=== PATIENT | male | born 1965 | race African-American/Black ===

== ENCOUNTER 2023-11-15 22:51 | Inpatient (IN) | payer OTHER, SELFPAY ==
[2023-11-15 23:56] VITALS: BMI 27.4
[2023-11-16] MEDS ORDERED: Acetaminophen 325 MG TAB PO PRN (00:38)
[2023-11-16] MEDS ORDERED: Senokot S 8.6-50 MG TAB PO PRN (00:38)
[2023-11-16] MEDS ORDERED: Ondansetron ODT 4 MG TAB PO PRN (00:38)
[2023-11-16] MEDS ORDERED: Morphine 2 MG/ML VIAL SLOW IVP PRN (00:43)
[2023-11-16] MEDS: Potassium Chloride 20 MEQ in Premix 1 BAG IVPB SCH (02:20)
[2023-11-16] MEDS: Lactated Ringer's 1,000 ML IV SCH (02:20)
[2023-11-16] MEDS: Pantoprazole 40 MG VIAL IVP SCH ×2 (02:21→09:03)
[2023-11-16 04:43] LABS: #Basophils Less than 0.03 10x3/uL (0.0-0.2); %Lymphocytes 29.6 % (21.0-51.0); %Monocytes 19.6 % (0.0-10.0); %Neutrophils 48.6 % (42.0-75.0); Hematocrit 41.4 % (42.0-52.0); Hemoglobin 13.5 g/dL (14.0-18.0); Mean Corpuscular HGB CONC 32.6 g/dL (32.0-36.0); Mean Corpuscular Hemoglobin 28.4 pg (27.0-31.0); Mean Corpuscular Volume 87.2 fL (78.0-98.0); Mean Platelet Volume 9.1 fL (7.4-10.4); Platelet Count 253 10x3/uL (130-400); RBC Distribution Width 15.3 % (11.5-14.5); Red Blood Cell (RBC) Count 4.75 mill/uL (4.70-6.10)
[2023-11-16 04:54] LABS: Magnesium 2.6 mg/dL (1.6-2.6)
[2023-11-16 04:55] LABS: Anion Gap 18 mmol/L (10-20); BUN (Urea Nitrogen) 18 mg/dL (8.4-25.7); Calc. Creatinine Clearance 76 mL/min (70-130); Calcium 9.7 mg/dL (7.8-10.44); Carbon Dioxide 27 mmol/L (22-29); Chloride 103 mmol/L (98-107); Estimated GFR 66; Glucose 106 mg/dL (70-105); Potassium 3.6 mmol/L (3.5-5.1); Sodium 144 mmol/L (136-145)
[2023-11-16] MEDS ORDERED: Acetaminophen 650 MG Suppository PR PRN (12:11)
[2023-11-16] MEDS ORDERED: Ondansetron PF 4 MG/2 ML Vial IVP PRN (12:12)
[2023-11-16] MEDS: Morphine 4 MG/ML VIAL SLOW IVP PRN (20:33)
[2023-11-17 05:26] LABS: Hematocrit 42.7 % (42.0-52.0); Hemoglobin 13.5 g/dL (14.0-18.0); Mean Corpuscular HGB CONC 31.6 g/dL (32.0-36.0); Mean Corpuscular Hemoglobin 27.9 pg (27.0-31.0); Mean Corpuscular Volume 88.2 fL (78.0-98.0); Mean Platelet Volume 8.6 fL (7.4-10.4); Platelet Count 247 10x3/uL (130-400); RBC Distribution Width 15.6 % (11.5-14.5); Red Blood Cell (RBC) Count 4.84 mill/uL (4.70-6.10)
[2023-11-17 05:45] LABS: Anion Gap 10 mmol/L (10-20); BUN (Urea Nitrogen) 19 mg/dL (8.4-25.7); Calc. Creatinine Clearance 76 mL/min (70-130); Calcium 9.6 mg/dL (7.8-10.44); Carbon Dioxide 29 mmol/L (22-29); Chloride 107 mmol/L (98-107); Estimated GFR 65; Glucose 102 mg/dL (70-105); Potassium 4.3 mmol/L (3.5-5.1); Sodium 142 mmol/L (136-145)
[2023-11-17] MEDS: Benzocaine/Menthol 1 LOZ LOZ PO PRN (08:33)
[2023-11-17] MEDS: Enoxaparin 40 MG (0.4 mL) SYRINGE SC SCH (10:35)
[2023-11-18 04:53] LABS: Hemoglobin 12.7 g/dL (14.0-18.0); Mean Corpuscular HGB CONC 31.8 g/dL (32.0-36.0); Mean Corpuscular Volume 88.3 fL (78.0-98.0); Mean Platelet Volume 8.7 fL (7.4-10.4); Platelet Count 244 10x3/uL (130-400); RBC Distribution Width 15.2 % (11.5-14.5); Red Blood Cell (RBC) Count 4.53 mill/uL (4.70-6.10)
[2023-11-18 05:13] LABS: Anion Gap 10 mmol/L (10-20); BUN (Urea Nitrogen) 16 mg/dL (8.4-25.7); Calc. Creatinine Clearance 77 mL/min (70-130); Calcium 9.2 mg/dL (7.8-10.44); Carbon Dioxide 24 mmol/L (22-29); Chloride 109 mmol/L (98-107); Estimated GFR 67; Glucose 93 mg/dL (70-105); Magnesium 2.3 mg/dL (1.6-2.6); Potassium 4.3 mmol/L (3.5-5.1); Sodium 139 mmol/L (136-145)
[2023-11-18] MEDS ORDERED: MD-Gastroview 120 ML BOT ONE (08:38)
[2023-11-18] MEDS: Enoxaparin 40 MG (0.4 mL) SYRINGE SC SCH (13:24)
[2023-11-19 06:13] LABS: Anion Gap 13 mmol/L (10-20); BUN (Urea Nitrogen) 16 mg/dL (8.4-25.7); Calc. Creatinine Clearance 83 mL/min (70-130); Calcium 9.2 mg/dL (7.8-10.44); Carbon Dioxide 24 mmol/L (22-29); Chloride 112 mmol/L (98-107); Estimated GFR 73; Glucose 84 mg/dL (70-105); Potassium 3.8 mmol/L (3.5-5.1); Sodium 145 mmol/L (136-145)
[2023-11-20 17:23] LABS: Hematocrit 37.8 % (42.0-52.0); Hemoglobin 12.5 g/dL (14.0-18.0); Mean Corpuscular HGB CONC 33.1 g/dL (32.0-36.0); Mean Corpuscular Hemoglobin 28.2 pg (27.0-31.0); Mean Corpuscular Volume 85.3 fL (78.0-98.0); Mean Platelet Volume 8.7 fL (7.4-10.4); Platelet Count 237 10x3/uL (130-400); RBC Distribution Width 14.8 % (11.5-14.5); Red Blood Cell (RBC) Count 4.43 mill/uL (4.70-6.10)
[2023-11-20 17:41] LABS: Anion Gap 18 mmol/L (10-20); BUN (Urea Nitrogen) 16 mg/dL (8.4-25.7); Calc. Creatinine Clearance 53 mL/min (70-130); Carbon Dioxide 20 mmol/L (22-29); Chloride 107 mmol/L (98-107); Estimated GFR 43; Glucose 102 mg/dL (70-105); Potassium 3.6 mmol/L (3.5-5.1); Sodium 141 mmol/L (136-145)
[2023-11-20 17:55] LABS: Band 30 % (5-11); Large Platelets 2.8 % (0-5); Lymphocytes 9 % (21-51); Monocytes 7 % (0-10); Neutrophil 55 % (42-75); Platelet Adequacy Comment Platelets Normal
[2023-11-20] MEDS: Lactated Ringer's 1,000 ML IV SCH (20:33)
[2023-11-21 05:50] LABS: Anion Gap 13 mmol/L (10-20); BUN (Urea Nitrogen) 21 mg/dL (8.4-25.7); Calc. Creatinine Clearance 57 mL/min (70-130); Calcium 8.5 mg/dL (7.8-10.44); Carbon Dioxide 22 mmol/L (22-29); Chloride 108 mmol/L (98-107); Estimated GFR 46; Glucose 99 mg/dL (70-105); Magnesium 1.3 mg/dL (1.6-2.6); Potassium 3.7 mmol/L (3.5-5.1); Sodium 139 mmol/L (136-145)
[2023-11-21 06:40] LABS: Mean Corpuscular HGB CONC 33.3 g/dL (32.0-36.0); Mean Corpuscular Hemoglobin 28.2 pg (27.0-31.0); Mean Corpuscular Volume 84.6 fL (78.0-98.0); Mean Platelet Volume 9.1 fL (7.4-10.4); Platelet Count 212 10x3/uL (130-400); RBC Distribution Width 15.2 % (11.5-14.5)
[2023-11-21 07:13] LABS: Anisocytosis SLIGHT = 6-15 cells HPF (0-5); Band 27 % (5-11); Burr Cells SLIGHT = 2-5 cells HPF (0-1); Eosinophils 1 % (0-10); Lymphocytes 2 % (21-51); Macrocytosis SLIGHT = 6-15 cells HPF (0-5); Monocytes 4 % (0-10); Neutrophil 66 % (42-75); Platelet Adequacy Comment Platelets Normal; Smudge Cells 13.9 %
[2023-11-21 09:22] VITALS: BP 112/69; TEMP 99.9
[2023-11-21] MEDS: Pantoprazole DR 40 MG TAB PO SCH (09:39)
== END 2023-11-21 16:36 | disposition left against medical advice (07) | DRG 389 ==
LOC: MSONC 23:40 → OBSVTOIN 11-16 00:38
PROVIDERS: ADMIT Student in an Organized Health Care Education/Training Program; ATTEND Internal Medicine
PROC: 0D9670Z Drainage of Stomach with Drainage Device, Via Natural or Artificial Opening (ICD-10-PCS; principal; 2023-11-16)
PROC: 3E0G76Z Introduction of Nutritional Substance into Upper GI, Via Natural or Artificial Opening (ICD-10-PCS; 2023-11-16)
DX: K56.609 Unspecified intestinal obstruction, unspecified as to partial versus complete obstruction (principal); N17.9 Acute kidney failure, unspecified; K44.9 Diaphragmatic hernia without obstruction or gangrene; E87.6 Hypokalemia; Z53.29 Procedure and treatment not carried out because of patient's decision for other reasons
CPT/HCPCS: 36415; 74018; 74250; 80048; 83735; 85025; 85027; C9113; J1650; J2270; J3475; J3480; J3490; J7120; Q9963